=== PATIENT | female | born 1960 | race Caucasian/White ===

== ENCOUNTER 2021-03-17 17:21 | Emergency (ER) | payer OTHER, SELFPAY ==
[2021-03-17 18:36] VITALS: BP 150/81; PULSE 67; RESP 18; TEMP 36.9; O2SAT 98; BMI 26.5
[2021-03-17 19:05] LABS: MANUAL DIFF FLAG NO
[2021-03-17 19:06] LABS: Basophils Absolute Auto 0.1 X10*3/uL (0.0-0.2); Eosinophils Absolute Auto 0.2 X10*3/uL (0.0-0.4); Eosinophils Percent Auto 2.9 % (0-4); Hemoglobin 13.5 g/dl (12.0-16.0); Imm Gran Abs Auto 0.02 X10*3/uL (0.00-0.03); Imm Gran Pct Auto 0.3 % (0.0-0.4); Lymphocytes Absolute Auto 2.1 X10*3/uL (1.2-4.9); Lymphocytes Percent Auto 34.2 % (20-40); Mean Corpuscular HGB Conc 34.6 g/dl (31.0-35.0); Mean Corpuscular Volume 86.7 fL (80-98); Mean Platelet Volume 10.9 fL (9.4-12.3); Monocytes Absolute Auto 0.3 X10*3/uL (0.1-1.2); Monocytes Percent Auto 5.4 % (2-11); Neutrophils Absolute Auto 3.4 X10*3/uL (2.0-8.3); Neutrophils Percent Auto 56.2 % (45-73); Platelet Count 284 X10*3/uL (160-400); Red Cell Distribution Width 11.8 % (11.0-16.0); White Blood Count 6.1 X10*3/uL (4.8-10.8)
[2021-03-17 19:12] LABS: Glucose, Whole Blood 265 mg/dL (60-115)
[2021-03-17 19:31] LABS: Alanine Aminotransferase 13 U/L (0-31); Albumin Level 4.4 g/dL (3.5-5.0); Alkaline Phosphatase 100 U/L (39-117); Anion Gap 14 (12-20); Aspartate Amino Transferase 16 U/L (5-31); Bilirubin Total 0.4 mg/dL (0.0-1.0); Blood Urea Nitrogen 18 mg/dL (9-16); Calcium 9.4 mg/dL (8.4-10.2); Carbon Dioxide 27 mmol/L (22-29); Chloride 102 mmol/L (96-108); Estimated Glomerular Filt Rate > 60; Glucose Random 275 mg/dL (60-115); Potassium 3.7 mmol/L (3.3-5.1); Sodium 139 mmol/L (135-145); Total Protein 7.2 g/dL (6.5-8.0)
--- NOTE | 2021-03-17 21:29 | ED_ITS ---
HPI - General Adult General Chief complaint: General Medical Stated complaint: HIGH BP, BLURRED VISION Time Seen by Provider: 03/17/21 21:29 Source: patient Mode of arrival: ambulatory Limitations: no limitations History of Present Illness HPI narrative: This is a 60-year-old female came in for evaluation of high blood sugar. 60-year-old female has a history of type 2 diabetes, patient was on metformin previously for diabetes, patient was able to adjust her diet and metformin was discontinued, patient now eats lots of carb diet, feels body numbness, blurry vision, polyuria, polydipsia which are signs of elevated blood sugar for her. Related Data Previous Rx's Medication Instructions Recorded metformin 500 mg PO BID #60 tab 03/17/21 Allergies Allergy/AdvReac Type Severity Reaction Status Date / Time No Known Allergies Allergy Verified 03/17/21 18:36 Review of Systems Review of Systems: All other systems are reviewed and are negative Constitutional: Reports as per HPI and Reports no additional constitutional comp laints Eyes: Reports as per HPI and Reports no additional eye complaints Reports system reviewed and no additional complaints, except as documented Cardiovascular: Reports as per HPI and Reports no additional cardiovascular complaints Respiratory: Reports as per HPI and Reports no additional respiratory complaints Gastrointestinal: Reports as per HPI and Reports no additional gastrointestinal complaints Genitourinary: Reports no additional female genitourinary complaints Musculoskeletal: Reports no additional musculoskeletal complaints Skin/Breast: Reports system reviewed and no additional complaints, except as docu Psychiatric: Reports no additional psychiatric complaints Endocrine: Reports no additional endocrine complaints Hematologic/Lymphatic: Reports no additional hematologic/lymphatic complaints Allergic/Immunologic: Reports no additional allergic/immunologic complaints Reports system reviewed and no additional complaints, except as documented and Reports Abnormal speech present [facility] Social History Social History Advance Directives: No Advance Directives Information Provided: Yes Patient : No Physical Exam Vital Signs: Vital Signs: Last Vital Signs Temp 98.5 F 03/17/21 18:36 Pulse 67 03/17/21 18:36 Resp 18 03/17/21 18:36 BP 150/81 H 03/17/21 18:36 Pulse Ox 98 03/17/21 18:36 Body Mass Index 26.5 Vital signs have been reviewed as appeared to be correct. Blood pressure normal. Heart rate normal. Respiration rate normal. Temperature normal. Oxygen saturation normal. Appearance: Alert. Oriented X3. No acute distress. Head: Normal external exam. Normocephalic. Atraumatic. No Desai signs noted. No raccoon eyes noted Eyes: PERRLA. EOMI. Conjunctiva and sclera normal. Eyelids normal. ENT: TM's Normal. Pharynx normal. Uvula midline. Moist mucous membranes. No trismus noted. No drooling noted. No muffled voice noted. Neck: Normal inspection. Neck supple. FROM. No adenopathy. Thyroid Normal. No meningeal signs. No neck mass noted. CVS: Normal heart rate and rhythm. Heart sound normal. No murmurs noted. Pulses normal throughout. Respiratory: No respiratory distress. Painless inspiration. Breath sounds normal. No wheezes/rales/rhonchi noted. Chest nontender. No accessory muscle usage noted or decreased air movement noted. Abdomen: Soft and nontender. Bowel sounds normal in all 4 quadrants. No distention noted. No organomegaly noted. No visible injury noted. Back: No CVA tenderness. Full range of motion noted. Skin: Skin warm and dry. Normal skin color. Normal skin turgor. No rashes/lesions/lacerations noted. Extremities: No lower extremity edema. Extremities exhibit normal range of motion. Extremities nontender. Neuro: Oriented X 3. No motor deficit. No sensory deficit. Reflexes normal. Course Course Course Narrative: Assessment and plan. 60-year-old female with recurrent type 2 diabetes, patient used to be on metformin twice a day was able to control her diabetes with just tight and the medication was discontinued, patient admitted to eating unhealthy males with high carbon and been having symptoms for type 2 diabetes, will start patient on Glucophage and urge until sees her primary doctor. Medical Decision Making Lab Data Lab results reviewed: Yes I reviewed the patient's lab results. Result diagrams: 03/17/21 19:00 03/17/21 19:00 Labs: Lab Results 03/17/21 03/17/21 03/17/21 Range/Units 18:48 19:00 19:00 WBC 6.1 (4.8-10.8) X10*3/uL RBC 4.50 (4.20-5.50) X10*6/uL Hgb 13.5 (12.0-16.0) g/dl Hct 39.0 (37-47) % MCV 86.7 (80-98) fL MCH 30.0 (27.0-33.0) pg MCHC 34.6 (31.0-35.0) g/dl RDW 11.8 (11.0-16.0) % Plt Count 284 (160-400) X10*3/uL MPV 10.9 (9.4-12.3) fL Immature Gran % (Auto) 0.3 (0.0-0.4) % Neut % (Auto) 56.2 (45-73) % Lymph % (Auto) 34.2 (20-40) % Turner % (Auto) 5.4 (2-11) % Eos % (Auto) 2.9 (0-4) % Baso % (Auto) 1.0 (0-2) % Lymph # (Auto) 2.1 (1.2-4.9) X10*3/uL Turner # (Auto) 0.3 (0.1-1.2) X10*3/uL Eos # (Auto) 0.2 (0.0-0.4) X10*3/uL Baso # (Auto) 0.1 (0.0-0.2) X10*3/uL Abs Immat Gran (auto) 0.02 (0.00-0.03) X10*3/uL Absolute Neuts (auto) 3.4 (2.0-8.3) X10*3/uL Absolute Nucleated RBC 0.000 (0.0-0.012) X10*3/uL Nucleated RBC % (auto) 0.0 (0.0-0.2) /100WBC Sodium 139 (135-145) mmol/L Potassium 3.7 (3.3-5.1) mmol/L Chloride 102 (96-108) mmol/L Carbon Dioxide 27 (22-29) mmol/L Anion Gap 14 (12-20) BUN 18 H (9-16) mg/dL Creatinine 0.83 (0.5-1.4) mg/dL Estim Creat Clear Calc 65.0 Estimated GFR > 60 POC Glucose 265 H (60-115) mg/dL Random Glucose 275 H (60-115) mg/dL Calcium 9.4 (8.4-10.2) mg/dL Total Bilirubin 0.4 (0.0-1.0) mg/dL AST 16 (5-31) U/L ALT 13 (0-31) U/L Alkaline Phosphatase 100 (39-117) U/L Total Protein 7.2 (6.5-8.0) g/dL Albumin 4.4 (3.5-5.0) g/dL Discharge Plan Discharge Clinical Impression: Diabetes Qualifiers: Diabetes mellitus type: type 2 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
[2021-03-17 21:42] LABS: Glucose, Whole Blood 218 mg/dL (60-115)
[2021-03-17] MEDS: metFORMIN HCl 500 MG TABLET PO (22:04)
[2021-03-17 22:09] VITALS: BP 146/78; PULSE 60; RESP 17; TEMP 37.3; O2SAT 98
== END 2021-03-17 22:49 | disposition home or self-care (01) ==
PROVIDERS: Emergency Provider Emergency Medicine
DX: E11.9 Type 2 diabetes mellitus without complications (principal)
CPT/HCPCS: 36415; 80053; 82947; 85025; 99283

== ENCOUNTER 2021-04-08 11:07 | Outpatient (REF) | payer OTHER, SELFPAY ==
[2021-04-08 14:00] LABS: Basophils Percent Auto 0.2 % (0-2); Eosinophils Percent Auto 0.7 % (0-4); Hematocrit 36.5 % (37-47); Lymphocytes Absolute Auto 1.7 X10*3/uL (1.2-4.9); Lymphocytes Percent Auto 40.8 % (20-40); MANUAL DIFF FLAG SCAN; Mean Corpuscular HGB Conc 35.6 g/dl (31.0-35.0); Mean Corpuscular Hemoglobin 29.6 pg (27.0-33.0); Mean Corpuscular Volume 83.1 fL (80-98); Mean Platelet Volume 12.5 fL (9.4-12.3); Monocytes Absolute Auto 0.5 X10*3/uL (0.1-1.2); Neutrophils Percent Auto 47.3 % (45-73); Platelet Count 179 X10*3/uL (160-400); Red Blood Count 4.39 X10*6/uL (4.20-5.50); Red Cell Distribution Width 11.5 % (11.0-16.0); SCAN SMEAR FLAG 1; White Blood Count 4.3 X10*3/uL (4.8-10.8)
[2021-04-08 14:34] LABS: SLIDE REVIEW VERIFIED
[2021-04-08 14:35] LABS: Estimated Average Glucose 295 mg/dL; Hemoglobin A1c % 11.9 %
[2021-04-08 14:38] LABS: Alanine Aminotransferase 262 U/L (0-31); Albumin Level 4.2 g/dL (3.5-5.0); Alkaline Phosphatase 272 U/L (39-117); Anion Gap 16 (12-20); Aspartate Amino Transferase 86 U/L (5-31); Bilirubin Total 1.1 mg/dL (0.0-1.0); Blood Urea Nitrogen 20 mg/dL (9-16); Calcium 9.4 mg/dL (8.4-10.2); Carbon Dioxide 27 mmol/L (22-29); Chloride 93 mmol/L (96-108); Cholesterol 197 mg/dL; Estimated Glomerular Filt Rate > 60; Glucose Fasting 273 mg/dL (60-99); HDL Cholesterol 16 mg/dL; LDL Cholesterol Calculated 102 mg/dl; Potassium 3.4 mmol/L (3.3-5.1); Sodium 133 mmol/L (135-145); Triglycerides 395 mg/dL
[2021-04-08 14:51] LABS: Creatinine Urine 181.19 mg/dL; Microalbum/Creatinine Ratio Ur 23.1 ug/mg cr
[2021-04-08 15:02] LABS: TSH reflex Free T4 5.44 uIU/mL (0.32-4.0); Vitamin D 25-OH Total 46.6 ng/mL (>30)
[2021-04-08 15:23] LABS: Folate > 20.0 ng/mL (> or = 4.0); Vitamin B12 1880 pg/mL (200-900)
[2021-04-08 15:41] LABS: Free T4 (Free Thyroxine) 0.93 ng/dL (0.71-1.85)
== END 2021-04-08 11:08 | disposition home or self-care (01) ==
LOC: HO.HMGCLDS 11:07
PROVIDERS: PCP Internal Medicine; Visit Provider Internal Medicine
DX: E11.65 Type 2 diabetes mellitus with hyperglycemia (principal); R41.0 Disorientation, unspecified
CPT/HCPCS: 36415; 80053; 80061; 82043; 82306; 82607; 82746; 83036; 84439; 84443; 85025

== ENCOUNTER 2021-04-15 23:34 | Emergency (ER) | payer OTHER, SELFPAY ==
--- NOTE | ~2021-04-15 | CT_ITS ---
EXAMINATION: CT ABDOMEN AND PELVIS WITH CONTRAST CLINICAL INFORMATION: Abdominal pain COMPARISON: None TECHNIQUE: Multidetector volumetric images were obtained from the superior aspect of the liver through the pubic symphysis following administration 85 mL of Omnipaque 350 intravenous contrast. Sagittal and coronal reformatted images were obtained on the technologist's workstation. Oral contrast: No This CT examination was performed using dose optimization techniques as appropriate, variously including the following: *Automated exposure control *Adjustment of mA and/or kV according to patient size (this includes techniques or standardized protocols for targeted exams where dose is matched to indication/reason for exam; i.e. extremities or head) *Use of iterative reconstruction technique DLP: 555 mGy-cm FINDINGS: LUNG BASES: The visualized lung bases are unremarkable. Coronary artery calcifications are present. LIVER, GALLBLADDER, AND BILIARY TREE: The liver is normal in size, shape, and attenuation. No focal hepatic lesion or biliary ductal dilatation is present. The gallbladder is unremarkable with no evidence of radiopaque gallstones, gallbladder wall thickening, or obvious pericholecystic inflammatory changes. PANCREAS: Unremarkable. SPLEEN: Unremarkable. ADRENAL GLANDS: Unremarkable. KIDNEYS AND URETERS: The kidneys are normal in size, shape, and attenuation. No hydronephrosis, hydroureter, or calculi seen. Few small renal hypodensities bilaterally favor cysts. No perinephric stranding. BLADDER: Unremarkable. GASTROINTESTINAL TRACT: There is colonic diverticulosis without convincing diverticulitis. Assessment for wall thickening in some segments of the colon is limited due to luminal collapse, though no significant pericolonic stranding is seen to strongly suggest a colitis. No evidence of bowel obstruction. The appendix is unremarkable. No free fluid or free air is seen. ABDOMINAL WALL: No significant hernia is appreciated. LYMPH NODES: Normal. VASCULAR: Scattered atherosclerotic calcifications noted. PELVIC VISCERA: Unremarkable. OSSEOUS STRUCTURES: Degenerative changes are noted in the spine. CT/CT abdomen pelvis w con IMPRESSION: No acute findings identified in the abdomen/pelvis. Colonic diverticulosis.
[2021-04-15 23:54] VITALS: BP 128/76; PULSE 86; RESP 20; TEMP 36.8; O2SAT 97; BMI 21.0
--- NOTE | 2021-04-16 00:23 | ECG_ITS ---
Test Reason : MEDICAL CLEARENCE Blood Pressure : / mmHG Vent. Rate : 083 BPM Atrial Rate : 083 BPM P-R Int : 160 ms QRS Dur : 090 ms QT Int : 370 ms P-R-T Axes : 046 035 023 degrees QTc Int : 434 ms Normal sinus rhythm Normal ECG When compared with ECG of 02-OCT-2008 14:59, No significant change was found Referred By: Generic ED Physician Electronically Signed By:MIAH CAMPA
[2021-04-16 00:28] LABS: MANUAL DIFF FLAG NO
[2021-04-16 00:33] LABS: Basophils Percent Auto 0.5 % (0-2); Eosinophils Absolute Auto 0.1 X10*3/uL (0.0-0.4); Eosinophils Percent Auto 1.7 % (0-4); Hematocrit 35.4 % (37-47); Hemoglobin 12.5 g/dl (12.0-16.0); Imm Gran Abs Auto 0.09 X10*3/uL (0.00-0.03); Imm Gran Pct Auto 1.1 % (0.0-0.4); Lymphocytes Absolute Auto 2.9 X10*3/uL (1.2-4.9); Lymphocytes Percent Auto 35.4 % (20-40); Mean Corpuscular HGB Conc 35.3 g/dl (31.0-35.0); Mean Corpuscular Hemoglobin 30.4 pg (27.0-33.0); Mean Corpuscular Volume 86.1 fL (80-98); Mean Platelet Volume 9.9 fL (9.4-12.3); Monocytes Absolute Auto 0.8 X10*3/uL (0.1-1.2); Monocytes Percent Auto 10.2 % (2-11); Neutrophils Absolute Auto 4.2 X10*3/uL (2.0-8.3); Neutrophils Percent Auto 51.1 % (45-73); Platelet Count 579 X10*3/uL (160-400); Red Blood Count 4.11 X10*6/uL (4.20-5.50); Red Cell Distribution Width 12.1 % (11.0-16.0); White Blood Count 8.1 X10*3/uL (4.8-10.8)
[2021-04-16 00:43] LABS: COVID-19 Test Negative (Negative)
[2021-04-16 00:44] LABS: Glucose, Whole Blood 200 mg/dL (60-115)
[2021-04-16 00:57] LABS: Alanine Aminotransferase 53 U/L (0-31); Albumin Level 4.6 g/dL (3.5-5.0); Alkaline Phosphatase 136 U/L (39-117); Anion Gap 18 (12-20); Aspartate Amino Transferase 22 U/L (5-31); Bilirubin Total 1.1 mg/dL (0.0-1.0); Blood Urea Nitrogen 20 mg/dL (9-16); Carbon Dioxide 26 mmol/L (22-29); Chloride 97 mmol/L (96-108); Creatinine Clr Calc Pharmacy 46.6; Estimated Glomerular Filt Rate 57; Glucose Random 225 mg/dL (60-115); Lipase 96 U/L (8-78); Potassium 4.2 mmol/L (3.3-5.1); Sodium 137 mmol/L (135-145); Total Protein 7.5 g/dL (6.5-8.0)
[2021-04-16 00:58] LABS: Troponin-I High Sensitivity < 3.5 ng/L (<3.5-17.0)
--- NOTE | 2021-04-16 02:13 | ED_ITS ---
HPI - General Adult General Chief complaint: General Medical Stated complaint: diabetic, cant eat, nausea Time Seen by Provider: 04/16/21 00:35 Source: patient Mode of arrival: ambulatory History of Present Illness HPI narrative: 60-year-old female with known diabetes comes in with complaints of ?a sweet taste no matter what she eats? but otherwise denies any abdominal pain/nausea/vomiting, denies any shortness of breath/chest pain/palpitations and denies any urinary symptoms. Related Data Previous Rx's Medication Instructions Recorded gabapentin 300 mg capsule 300 mg PO BID 30 Days #60 cap 03/25/21 metformin 1,000 mg tablet 1,000 mg PO BID #30 tab 03/25/21 metformin 1,000 mg tablet 1,000 mg PO BID #60 tab 04/07/21 blood sugar diagnostic (FreeStyle #100 ea 04/10/21 Lite Strips) blood-glucose meter (FreeStyle #1 ea 04/10/21 Lite Meter) lancets 28 gauge (FreeStyle #100 ea 04/10/21 Lancets) Allergies Allergy/AdvReac Type Severity Reaction Status Date / Time No Known Allergies Allergy Verified 04/11/21 14:11 Review of Systems Review of Systems: Pertinent positives and negatives as stated in HPI and 10 point review of systems is otherwise negative. [facility] Past Medical History Source: nursing notes reviewed Medical History Confusion Type 2 diabetes mellitus with hyperglycemia, without long-term current use of insulin Family History Family History Mother Dementia Social History Social History Housing: Other Housing Other:: son and daughter in law Patient Tobacco Use Status: Former Tobacco user Years Smoked: 10 yrs e-Cigarette/Vaping Use: Never Used Second Hand Smoke Exposure: No Advance Directives: No Advance Directives Information Provided: Yes Patient : No service: No Current occupational status: employed Physical Exam Vital Signs: Vital Signs: Last Vital Signs Temp 98.2 F 04/15/21 23:54 Pulse 86 04/15/21 23:54 Resp 20 04/15/21 23:54 BP 128/76 04/15/21 23:54 Pulse Ox 97 04/15/21 23:54 Body Mass Index 21.0 VITAL SIGNS: Reviewed. GENERAL: Well developed, well nourished, in no acute distress. HEAD: Normocephalic/atraumatic EYES: PERRLA, EOMI LUNGS: Normal breath sounds. No adventitious sounds or accessory muscle use. SpO2<97> CARDIOVASCULAR: Regular rate and rhythm without noted murmurs, no JVD or lower e xtremity edema. ABDOMEN: Soft, non-tender, non-distended with bowel sounds. SKIN: Inspection of the skin reveals no rashes NEUROLOGIC: Alert and oriented x 4. Strength and sensation to light touch were grossly intact x 4. Course Course Course Narrative: 60-year-old female with history and clinical presentation suggestive of possible hyperglycemia, UTI, gallbladder pathology. Review of all investigations without acute findings although noted liver enzymes as well as pancreatic elevation without CT scan or clinical exam to further support evidence of cholecystitis/choledocholithiasis/biliary pancreatitis. However, patient was encouraged to follow-up with her primary care provider as it was explained that there are some medications that can lead to these results. Medical Decision Making Lab Data Result diagrams: 04/16/21 00:19 04/16/21 00:19 Labs: Lab Results 04/16/21 04/16/21 04/16/21 Range/Units 00:19 00:19 00:19 WBC 8.1 (4.8-10.8) X10*3/uL RBC 4.11 L (4.20-5.50) X10*6/uL Hgb 12.5 (12.0-16.0) g/dl Hct 35.4 L (37-47) % MCV 86.1 (80-98) fL MCH 30.4 (27.0-33.0) pg MCHC 35.3 H (31.0-35.0) g/dl RDW 12.1 (11.0-16.0) % Plt Count 579 H D (160-400) X10*3/uL MPV 9.9 (9.4-12.3) fL Immature Gran % (Auto) 1.1 H (0.0-0.4) % Neut % (Auto) 51.1 (45-73) % Lymph % (Auto) 35.4 (20-40) % Lares % (Auto) 10.2 (2-11) % Eos % (Auto) 1.7 (0-4) % Baso % (Auto) 0.5 (0-2) % Lymph # (Auto) 2.9 (1.2-4.9) X10*3/uL Lares # (Auto) 0.8 (0.1-1.2) X10*3/uL Eos # (Auto) 0.1 (0.0-0.4) X10*3/uL Baso # (Auto) 0.0 (0.0-0.2) X10*3/uL Abs Immat Gran (auto) 0.09 H (0.00-0.03) X10*3/uL Absolute Neuts (auto) 4.2 (2.0-8.3) X10*3/uL Absolute Nucleated RBC 0.000 (0.0-0.012) X10*3/uL Nucleated RBC % (auto) 0.0 (0.0-0.2) /100WBC Sodium 137 (135-145) mmol/L Potassium 4.2 D (3.3-5.1) mmol/L Chloride 97 (96-108) mmol/L Carbon Dioxide 26 (22-29) mmol/L Anion Gap 18 (12-20) BUN 20 H (9-16) mg/dL Creatinine 0.99 (0.5-1.4) mg/dL Estim Creat Clear Calc 46.6 Estimated GFR 57 POC Glucose (60-115) mg/dL Random Glucose 225 H (60-115) mg/dL Calcium 10.0 D (8.4-10.2) mg/dL Total Bilirubin 1.1 H (0.0-1.0) mg/dL AST 22 D (5-31) U/L ALT 53 H (0-31) U/L Alkaline Phosphatase 136 H D (39-117) U/L Troponin I High Sens < 3.5 (<3.5-17.0) ng/L Total Protein 7.5 (6.5-8.0) g/dL Albumin 4.6 (3.5-5.0) g/dL Lipase 96 H (8-78) U/L Acetone, Qual Negative (Negative) COVID-19 (ADIA) (Negative) COVID-19 Clin Com 04/16/21 04/16/21 Range/Units 00:19 00:40 WBC (4.8-10.8) X10*3/uL RBC (4.20-5.50) X10*6/uL Hgb (12.0-16.0) g/dl Hct (37-47) % MCV (80-98) fL MCH (27.0-33.0) pg MCHC (31.0-35.0) g/dl RDW (11.0-16.0) % Plt Count (160-400) X10*3/uL MPV (9.4-12.3) fL Immature Gran % (Auto) (0.0-0.4) % Neut % (Auto) (45-73) % Lymph % (Auto) (20-40) % Lares % (Auto) (2-11) % Eos % (Auto) (0-4) % Baso % (Auto) (0-2) % Lymph # (Auto) (1.2-4.9) X10*3/uL Lares # (Auto) (0.1-1.2) X10*3/uL Eos # (Auto) (0.0-0.4) X10*3/uL Baso # (Auto) (0.0-0.2) X10*3/uL Abs Immat Gran (auto) (0.00-0.03) X10*3/uL Absolute Neuts (auto) (2.0-8.3) X10*3/uL Absolute Nucleated RBC (0.0-0.012) X10*3/uL Nucleated RBC % (auto) (0.0-0.2) /100WBC Sodium (135-145) mmol/L Potassium (3.3-5.1) mmol/L Chloride (96-108) mmol/L Carbon Dioxide (22-29) mmol/L Anion Gap (12-20) BUN (9-16) mg/dL Creatinine (0.5-1.4) mg/dL Estim Creat Clear Calc Estimated GFR POC Glucose 200 H (60-115) mg/dL Random Glucose (60-115) mg/dL Calcium (8.4-10.2) mg/dL Total Bilirubin (0.0-1.0) mg/dL AST (5-31) U/L ALT (0-31) U/L Alkaline Phosphatase (39-117) U/L Troponin I High Sens (<3.5-17.0) ng/L Total Protein (6.5-8.0) g/dL Albumin (3.5-5.0) g/dL Lipase (8-78) U/L Acetone, Qual (Negative) COVID-19 (ADIA) Negative (Negative) COVID-19 Clin Com See Note ECG Data Attestation: I personally reviewed and interpreted this ECG as follows: Prior ECG tracings: available for review (10/02/2008 no acute changes on comparison) Interpretation: Normal sinus rhythm, HR-83, no STEMI, HI/QRS/QTC are within normal limits. Discharge Plan Discharge Clinical Impression: Nausea, Diabetes, Elevated liver enzymes Patient Disposition: Home, Self-Care Instructions: Diabetes and Nutrition (ED) Additional Instructions: 1. Resume all home medications as prescribed. You have noted elevation of your liver enzymes and this should be evaluated further by your primary care provider. 2. Follow-up with your primary care provider in the next 1-2 days for re- evaluation further outpatient management. Return to the ER for acute worsening of your symptoms. Prescriptions: No Action (DME) FreeStyle Lite Strips Strip See Rx Instructions .Route Qty: 100 RF: 5 (DME) blood-glucose meter [FreeStyle Lite Meter] Kit See Rx Instructions .Route Qty: 1 RF: 0 (DME) lancets [FreeStyle Lancets] 28 gauge misc See Rx Instructions .Route Qty: 100 RF: 5 metformin 1,000 mg tablet 1,000 mg PO BID Qty: 30 RF: 0 gabapentin 300 mg capsule 300 mg PO BID 30 Days Qty: 60 RF: 0 metformin 1,000 mg tablet 1,000 mg PO BID Qty: 60 RF: 1 Referrals: Physician,Unknown [Primary Care Provider] - 2 days
[2021-04-16 02:21] LABS: Acetone, serum QL Negative (Negative)
[2021-04-16] MEDS: 0.9 % Sodium Chloride 1,000 ML 999 ML IV (02:26)
[2021-04-16] MEDS: iohexoL 350 MG/ML 100 ML INFUS..BTL 85 ML IV (02:53)
== END 2021-04-16 04:15 | disposition home or self-care (01) ==
PROVIDERS: Emergency Provider Student in an Organized Health Care Education/Training Program
DX: R11.0 Nausea (principal); R79.89 Other specified abnormal findings of blood chemistry; E11.9 Type 2 diabetes mellitus without complications; Z20.822 Contact with and (suspected) exposure to COVID-19; Z87.891 Personal history of nicotine dependence; Z79.899 Other long term (current) drug therapy
CPT/HCPCS: 36415; 74177; 80053; 82009; 82947; 83690; 84484; 85025; 87635; 93005; 96360; 99283; 99284; Q9967

== ENCOUNTER 2023-03-03 18:53 | Emergency (ER) | payer OTHER, SELFPAY ==
--- NOTE | ~2023-03-03 | CT_ITS ---
EXAMINATION: CT HEAD WITHOUT CONTRAST CLINICAL INFORMATION: Fall with head strike and tenderness. COMPARISON: None available. TECHNIQUE: Contiguous axial imaging was performed from the skull base to vertex without intravenous administration of contrast. This CT examination was performed using dose optimization techniques as appropriate, variously including the following: *Automated exposure control *Adjustment of mA and/or kV according to patient size (this includes techniques or standardized protocols for targeted exams where dose is matched to indication/reason for exam; i.e. extremities or head) *Use of iterative reconstruction technique DLP: 569 mGy-cm FINDINGS: There is no acute intra-axial, extra-axial bleed, masses or midline shift. There is no acute infarction evolution. There is no edema. The lopez to white matter difference is maintained normal. The lateral ventricles are symmetrical in size and configuration without enlargement. Bone windows reveal no calvarial abnormality. There is mild mucoperiosteal thickening left maxillary sinus. Rest of the paranasal sinuses and mastoid air cells are well-aerated. CT/CT head/brain wo IV con IMPRESSION: No acute intracranial process seen.
[2023-03-03 19:21] VITALS: BP 120/71; PULSE 83; RESP 18; TEMP 36.7; O2SAT 99; BMI 48.8
--- NOTE | 2023-03-03 19:21 | ED.GENADULT ---
HPI - General Adult General Chief complaint: Neuro Symptoms/Deficit Stated complaint: double vision right eye since 03/02 Related Data Previous Rx's Medication Instructions Recorded blood sugar diagnostic (FreeStyle #100 ea 04/10/21 Lite Strips) blood-glucose meter (FreeStyle #1 ea 04/10/21 Lite Meter kit) Allergies Allergy/AdvReac Type Severity Reaction Status Date / Time No Known Allergies Allergy Verified 02/25/23 15:21 [facility] Past Medical History Medical History Confusion Type 2 diabetes mellitus with hyperglycemia, without long-term current use of insulin Surgical History No pertinent past surgical history Family History Family History Mother Dementia Social History Social History Housing: Other Housing Other:: son and daughter in law Patient Tobacco Use Status: Former Tobacco user Years Smoked: 10 yrs e-Cigarette/Vaping Use: Never Used Second Hand Smoke Exposure: No Advance Directives: No Advance Directives Information Provided: No service: No Current occupational status: employed Physical Exam ED Vital Signs: BMI result Body Mass Index 48.8 Course Course Course Narrative: This is a rapid medical exam: Additional HPI, ROS, PE not included below will be deferred to primary provider. Patient is a 62-year-old female with history of confusion, T2DM and diabetic neuropathy presenting to the emergency department with double vision in right eye since yesterday but is unsure if it was the day before. Denies any headache, eye pain, or other pain. Denies any extremity weakness. Patient stating in triage that she has not previously been evaluated for these symptoms, however review of EMR reveals that patient was evaluated at the walk-in clinic for same complaint on 02/25/23. Patient was advised to be further evaluated in the ED or by an music coordinator at that time but patient does not remember if she did or not. She denies any memory of this walk-in visit and reports problems with memory that have been progressively worsening. States has continued to work despite symptoms. Drove herself to the ED today. Plan: basic labs, CT head Medical Decision Making Lab Data 03/03/23 19:58 03/03/23 19:58 Labs: Lab Results 03/03/23 03/03/23 Range/Units 19:58 19:58 WBC 8.0 (4.8-10.8) X10*3/uL RBC 4.39 (4.20-5.50) X10*6/uL Hgb 13.1 (12.0-16.0) g/dl Hct 37.2 (37.0-47.0) % MCV 84.7 (80.0-98.0) fL MCH 29.8 (27.0-33.0) pg MCHC 35.2 H (31.0-35.0) g/dl RDW 11.7 (11.0-16.0) % Plt Count 353 (160-400) X10*3/uL MPV 10.3 (9.4-12.3) fL Immature Gran % (Auto) 0.3 (0.0-0.4) % Neut % (Auto) 69.9 (45-73) % Lymph % (Auto) 22.4 (20-40) % Callahan % (Auto) 4.6 (2-11) % Eos % (Auto) 2.0 (0-4) % Baso % (Auto) 0.8 (0-2) % Lymph # (Auto) 1.8 (1.2-4.9) X10*3/uL Callahan # (Auto) 0.4 (0.1-1.2) X10*3/uL Eos # (Auto) 0.2 (0.0-0.4) X10*3/uL Baso # (Auto) 0.1 (0.0-0.2) X10*3/uL Abs Immat Gran (auto) 0.02 (0.00-0.03) X10*3/uL Absolute Neuts (auto) 5.6 (2.0-8.3) x10*3/uL Absolute Nucleated RBC 0.000 (0.0-0.012) X10*3/uL Nucleated RBC % (auto) 0.0 (0.0-0.2) /100WBC Sodium 135 (135-145) mmol/L Potassium 3.6 (3.3-5.1) mmol/L Chloride 97 (96-108) mmol/L Carbon Dioxide 28 (22-29) mmol/L Anion Gap 14 (12-20) BUN 19 H (9-16) mg/dL Creatinine 0.81 (0.5-1.4) mg/dL Estim Creat Clear Calc 90.2 Estimated GFR > 60 Random Glucose 219 H (60-115) mg/dL Calcium 10.4 H (8.4-10.2) mg/dL Discharge Plan Discharge Clinical Impression: Diplopia Patient Disposition: Elopement Prescriptions: No Action (DME) FreeStyle Lite Strips Strip See Rx Instructions .Route Qty: 100 5RF Rx Instructions: check fasting blood sugar twice a day (DME) blood-glucose meter [FreeStyle Lite Meter] Kit See Rx Instructions .Route Qty: 1 0RF Rx Instructions: Check fasting blood sugar twice a day and keep a record of the readings Interventions: ED Discharge Assessment Last Done: 03/04/23 00:08 Discharge Date/Time: 03/04/23 00:10
--- NOTE | 2023-03-03 19:27 | PC.NURSE ---
patient came into the Er complaining of having double vision in the right eye for a couple of days no pain noted
--- OUTSIDE RECORDS SUMMARY | 2023-03-03 20:01 | XMS_ITS | Continuity of Care Document ---
Author Name Unknown Organization [facility] ter Address [address] [place] [id number]- Care Team Providers Care Loan Officer Assistant Name Role Phone Mathew LINDSEY, Isa Rojas Primary Care Physician Encounter [facility] [place] Date(s): 04/11/21 - 04/11/[address] [id number]- Encounter Diagnosis Altered mental status(Final) - 04/11/21 Discharge Disposition: A-D/C Walkout Attending Physician: Jose Kelley MD Admitting Physician: Jose Kelley MD Referring Physician: Not on Staff, Referring MD Allergies, Adverse Reactions, Alerts Substance Reaction Severity Status NKA Active Immunizations Given and Recorded Vaccine Date Status Refusal Reason pneumococcal 23-valent vaccine 07/03/18 Given influenza virus vaccine, inactivated 07/03/18 Give n Problem List Condition Effective Dates Status Health Status Inform ant Anxiety(Confirmed) Active Vitamin D insufficiency(Confirmed) Active Dyslipidemia(Confirmed) Active Subclinical hypothyroidism(Confirmed) Active T2DM (type 2 diabetes mellitus)(Confirmed) Active Results Radiology Reports * Exam Date Time Procedure Performing Provider Status 04/11/21 7:00 PM Chest Portable Dayan Alexander; Aut h (Verified) Notes: (Chest Portable) Reason For Exam: Shortness of Breath RESULT: Chest Portable Chest Portable Reason: Shortness of Breath; Clinical Question(s): CHF COMPARISON: None. FINDINGS: LINES AND TUBES: None. LUNGS AND PLEURA: Clear lungs. Normal pulmonary vascularity. No pleural effusion. No pneumothorax. HEART, MEDIASTINUM AND NEYMAR: Heart is normal in size. Normal upper mediastinal and hilar contour. BONES AND SOFT TISSUES: No acute abnormality. IMPRESSION: No acute abnormality. WSN: [id number] Ordering Physician: Fausto Schaffer Dictated By: Dulce Long MD Dictated Date/Time: 04/11/21 7:08 pm Reviewed By: Dulce Long MD Signed By: Dulce Long MD Signed Date/Time: 04/11/21 7:08 pm Transcribed By: EDITH Transcribed Date/Time: 04/11/21 7:08 pm Vital Signs Most recent to oldest [Reference Range]: 1 Oxygen Saturation [94-100 %] 99 % (04/11/21 4:01 PM) Pulse Rate [55-90 bpm] 85 bpm (04/11/21 4:01 PM) Blood Pressure [90-138/55-84 mm Hg] 133/ 76mm Hg (04/11/21 4:01 PM) Respiratory Rate [16-30 br/min] 18 br/mi n (04/11/21 4:01 PM) Temperature [96.8-100.4 DegF] 97.9 DegF (04/11/21 4:01 PM) Mode of Delivery (Oxygen) Room air (04/11/21 4:01 PM) Blood pressure sites Arm, left (04/11/21 4:01 PM) Temperature Route Axillary (04/11/21 4:01 PM) Social History Social History Type Response Smoking Status Former smoker; Type: Cigarettes; Tobacco use times per day: 1/2 PPD; Started at age: 16; Stopped at age: 32; entered on: 05/02/18 Sex
--- NOTE | 2023-03-03 20:03 | MHC.EDTECH ---
PATIENT BLOOD DRAWN AND SENT TO LAB ,VISUAL ACUITY CHECK DONE .
[2023-03-03 20:04] LABS: MANUAL DIFF FLAG NO
[2023-03-03 20:05] LABS: Basophils Absolute Auto 0.1 X10*3/uL (0.0-0.2); Basophils Percent Auto 0.8 % (0-2); Eosinophils Absolute Auto 0.2 X10*3/uL (0.0-0.4); Hematocrit 37.2 % (37.0-47.0); Hemoglobin 13.1 g/dl (12.0-16.0); Imm Gran Abs Auto 0.02 X10*3/uL (0.00-0.03); Imm Gran Pct Auto 0.3 % (0.0-0.4); Lymphocytes Absolute Auto 1.8 X10*3/uL (1.2-4.9); Lymphocytes Percent Auto 22.4 % (20-40); Mean Corpuscular HGB Conc 35.2 g/dl (31.0-35.0); Mean Corpuscular Hemoglobin 29.8 pg (27.0-33.0); Mean Corpuscular Volume 84.7 fL (80.0-98.0); Mean Platelet Volume 10.3 fL (9.4-12.3); Monocytes Absolute Auto 0.4 X10*3/uL (0.1-1.2); Monocytes Percent Auto 4.6 % (2-11); Neutrophils Absolute Auto 5.6 x10*3/uL (2.0-8.3); Neutrophils Percent Auto 69.9 % (45-73); Platelet Count 353 X10*3/uL (160-400); Red Blood Count 4.39 X10*6/uL (4.20-5.50); Red Cell Distribution Width 11.7 % (11.0-16.0)
[2023-03-03 20:17] LABS: Anion Gap 14 (12-20); Blood Urea Nitrogen 19 mg/dL (9-16); Calcium 10.4 mg/dL (8.4-10.2); Carbon Dioxide 28 mmol/L (22-29); Chloride 97 mmol/L (96-108); Creatinine Clr Calc Pharmacy 90.2; Estimated Glomerular Filt Rate > 60; Glucose Random 219 mg/dL (60-115); Potassium 3.6 mmol/L (3.3-5.1); Sodium 135 mmol/L (135-145)
== END 2023-03-04 00:10 | disposition left against medical advice (07) ==
PROVIDERS: Registered Nurse Emergency; Emergency Provider Emergency Medicine
DX: H53.2 Diplopia (principal); Z79.899 Other long term (current) drug therapy; Z87.891 Personal history of nicotine dependence
CPT/HCPCS: 36415; 70450; 80048; 85025; 99282; 99284

== ENCOUNTER 2023-03-14 15:31 | Outpatient (REF) | payer OTHER, SELFPAY ==
[2023-03-14 18:37] LABS: Erythrocyte Sedimentation Rate 44 MM/HR (0-20); T4 Thyroxine 6.9 ug/dL (4.5-12.0); Thyroid Stimulating Hormone 3.89 uIU/mL (0.32-4.0)
[2023-03-19 18:29] LABS: Acetylcholine Receptor Binding <0.30 nmol/L
[2023-03-25 19:38] LABS: Acetylcholine Recep Modulating 15
== END 2023-03-14 15:32 | disposition home or self-care (01) ==
LOC: HO.LAB 15:31
PROVIDERS: Visit Provider Psychiatry & Neurology Neurology
DX: H53.2 Diplopia (principal); G70.00 Myasthenia gravis without (acute) exacerbation
CPT/HCPCS: 36415; 82550; 83519; 84436; 84443; 85652

== ENCOUNTER 2024-06-18 16:26 | Emergency (ER) | payer MEDICARE, SELFPAY ==
--- NOTE | 2024-06-18 17:02 | ED_ITS ---
HPI - General Adult General Chief complaint: General Medical Stated complaint: High blood sugar Time Seen by Provider: 06/18/24 21:24 Source: patient Mode of arrival: ambulatory Limitations: no limitations History of Present Illness ED Provider: waleska MORRIS narrative: Patient is diabetic noncompliant with medication used to be on metformin not taking for last 2 nose come here as noticed a doctor's office but sugar of 508 no nausea no vomiting was feeling weak more confused and urinating a lot on arrival here blood sugar was 415 no nausea no vomiting no abdominal Related Data Previous Rx's ?Medication ?Instructions ?Recorded blood sugar diagnostic (FreeStyle #100 ea 04/10/21 Lite Strips) blood-glucose meter (FreeStyle #1 ea 04/10/21 Lite Meter kit) insulin glargine 100 unit/mL (3 15 unit (0.15 mL) subcut QPM #15 mL 06/18/24 mL) subcutaneous pen (Lantus Solostar U-100 Insulin) metformin 850 mg tablet 850 mg PO BID #180 tabs 06/18/24 Allergies Allergy/AdvReac Type Severity Reaction Status Date / Time No Known Allergies Allergy Verified 06/18/24 17:07 Review of Systems 2 Review of Systems: Yes all other systems are reviewed and are negative PMFSH Past Medical History Medical History Confusion Type 2 diabetes mellitus with hyperglycemia, without long-term current use of insulin Surgical History No pertinent past surgical history Family History Family History Mother Dementia Social History Social History Housing: Other Housing Other:: son and daughter in law Patient Tobacco Use Status: Former Tobacco user Years Smoked: 10 yrs Smoked in Last 30 Days: No e-Cigarette/Vaping Use: Never Used Second Hand Smoke Exposure: No Use of substances other than those prescribed or required for medical reasons: No Advance Directives: No Advance Directives Information Provided: No Do you have a plan to hurt others: No Plan service: No Current occupational status: employed Physical Exam ED Vital Signs: Vital Signs - 24 hr 06/18/24 17:03 06/18/24 21:23 06/18/24 23:55 Temperature 97.5 F 97.7 F 98.3 F Pulse Rate 76 77 82 Respiratory Rate 18 16 18 Blood Pressure 149/81 H 137/66 135/74 Pulse Oximetry 99 99 98 Oxygen Delivery Method Room Air Room Air Room Air 06/19/24 00:07 Temperature 98.3 F Pulse Rate 82 Respiratory Rate 18 Blood Pressure 135/74 Pulse Oximetry 98 Oxygen Delivery Method Room Air BMI result Body Mass Index 26.0 Appearance: Alert. Oriented X3. No acute distress. Eyes: PERRLA, No Nystagmus ENT: Pharynx normal. Oral Mucosa moist Neck: Normal inspection. Neck supple. CVS: Normal heart rate and rhythm. Pulses normal. Respiratory: No respiratory distress. Equal air entry bilateral, no wheezing/rales/rhonchi Abdomen: Soft and nontender. Bowel sounds are present, no mass palpable, no CVA tenderness Skin: Skin warm and dry. Normal skin color. Normal skin turgor. Extremities: No lower extremity edema. No calf tenderness Neuro: Oriented X 3. No motor deficit. No sensory deficit.No cerebellar signs , cranial nerves II-XII intact Course Course Course Narrative: This is a Rapid Medical Exam performed in triage by Shante Sue PA-C. Full HPI, ROS and PE to be performed by primary ED provider. 63-year-old female with past medical history of diabetes presenting to the ED sent in from urgent Care c/o medication noncompliance x months and elevated glucose at office, 508 today. denies decreased PO intake PE: ambulating w/steady gait Plan: Labs, UA Medications Administered Discontinued Medications Generic Name Dose Route Start Last Admin Trade Name Freq PRN Reason Stop Dose Admin Sodium Chloride 1,000 mls @ 999 mls/hr 06/18/24 21:32 06/18/24 21:36 Ns IV 06/18/24 22:32 999 mls/hr .Q1H1M ONE Administration Insulin Glargine 20 unit 06/18/24 21:32 06/18/24 21:40 Insulin Glargine,Hum.Rec.Anlog 100 Unit/Ml 10 Ml Vial SUBCUT 06/18/24 21:33 20 unit ONCE ONE Administration Insulin Human Lispro 16 unit 06/18/24 21:32 06/18/24 21:41 Insulin Lispro 100 Unit/Ml 3 Ml Vial SUBCUT 06/18/24 21:33 16 unit ONCE ONE Administration Medical Decision Making Medical Decision Making [facility] Narrative: Patient with uncontrolled diabetes secondary to noncompliance nonketotic no signs of infection blood sugar improved after giving Lantus and Humalog will prescribe Lantus insulin and metformin advised to follow with PCP Differential Diagnosis Differential Diagnoses: The differential diagnosis associated with the presentation includes Ketoacidosis/DKA/hyperglycemia/UTI Lab Data [facility] Lab Attestation statement: I reviewed the patient's lab results. 06/18/24 17:45 06/18/24 17:45 Labs: Lab Results 06/18/24 06/18/24 06/18/24 Range/Units 17:38 17:45 17:47 WBC 5.4 (4.8-10.8) X10*3/uL RBC 4.19 L (4.20-5.50) X10*6/uL Hgb 12.4 (12.0-16.0) g/dl Hct 36.3 L (37.0-47.0) % MCV 86.6 (80.0-98.0) fL MCH 29.6 (27.0-33.0) pg MCHC 34.2 (31.0-35.0) g/dl RDW 12.2 (11.0-16.0) % Plt Count 322 (160-400) X10*3/uL MPV 10.9 (9.4-12.3) fL Immature Gran % (Auto) 0.4 (0.0-0.4) % Neut % (Auto) 62.5 (45-73) % Lymph % (Auto) 27.6 (20-40) % [place] % (Auto) 5.6 (2-11) % Eos % (Auto) 2.6 (0-4) % Baso % (Auto) 1.3 (0-2) % Lymph # (Auto) 1.5 (1.2-4.9) X10*3/uL [place] # (Auto) 0.3 (0.1-1.2) X10*3/uL Eos # (Auto) 0.1 (0.0-0.4) X10*3/uL Baso # (Auto) 0.1 (0.0-0.2) X10*3/uL Abs Immat Gran (auto) 0.02 (0.00-0.03) X10*3/uL Absolute Neuts (auto) 3.4 (2.0-8.3) x10*3/uL Absolute Nucleated RBC 0.000 (0.0-0.012) X10*3/uL Nucleated RBC % (auto) 0.0 (0.0-0.2) /100WBC VBG pH 7.44 H (7.32-7.43) VBG pCO2 44 mmHg VBG pO2 38 mmHg VBG HCO3 30 H (22-26) mmol/L VBG O2 Saturation 54.0 % VBG Base Excess 5.6 mmol/L Sodium 133 L (135-145) mmol/L Potassium 4.0 (3.3-5.1) mmol/L Chloride 98 (96-108) mmol/L Carbon Dioxide 27 (22-29) mmol/L Anion Gap 12 (12-20) BUN 14 (9-16) mg/dL Creatinine 0.84 (0.5-1.4) mg/dL Estim Creat Clear Calc 61.1 Estimated GFR > 60 POC Glucose 384 H* (60-115) mg/dL Random Glucose 415 H* (60-115) mg/dL Calcium 9.8 (8.4-10.2) mg/dL Magnesium 1.6 (1.6-2.6) mg/dL Total Bilirubin 0.3 (0.0-1.0) mg/dL Direct Bilirubin 0.1 (0.0-0.5) mg/dL AST 14 (5-31) U/L ALT 12 (0-31) U/L Alkaline Phosphatase 142 H (39-117) U/L Total Protein 7.4 (6.5-8.0) g/dL Albumin 4.1 (3.5-5.0) g/dL Lipase 58 (8-78) U/L Beta-Hydroxybutyrate 0.14 (0.02-0.27) mmol/L Urine Color Urine Appearance Urine pH (5.0-9.0) Ur Specific [place] (1.005-1.025) Urine Protein (Neg-Trace) mg/dL Urine Glucose (UA) (Negative) mg/dL Urine Ketones (Negative) mg/dL Urine Blood (Negative) Urine Nitrite (Negative) Ur Leukocyte Esterase (Negative) Urine RBC (0-2) /HPF Urine WBC (0-5) /HPF Ur Squamous Epith Cells (0-2) /HPF Urine Bacteria (None Seen) Hyaline Casts (0-2) /LPF 06/18/24 06/18/24 06/18/24 Range/Units 21:22 22:25 22:56 WBC (4.8-10.8) X10*3/uL RBC (4.20-5.50) X10*6/uL Hgb (12.0-16.0) g/dl Hct (37.0-47.0) % MCV (80.0-98.0) fL MCH (27.0-33.0) pg MCHC (31.0-35.0) g/dl RDW (11.0-16.0) % Plt Count (160-400) X10*3/uL MPV (9.4-12.3) fL Immature Gran % (Auto) (0.0-0.4) % Neut % (Auto) (45-73) % Lymph % (Auto) (20-40) % [place] % (Auto) (2-11) % Eos % (Auto) (0-4) % Baso % (Auto) (0-2) % Lymph # (Auto) (1.2-4.9) X10*3/uL [place] # (Auto) (0.1-1.2) X10*3/uL Eos # (Auto) (0.0-0.4) X10*3/uL Baso # (Auto) (0.0-0.2) X10*3/uL Abs Immat Gran (auto) (0.00-0.03) X10*3/uL Absolute Neuts (auto) (2.0-8.3) x10*3/uL Absolute Nucleated RBC (0.0-0.012) X10*3/uL Nucleated RBC % (auto) (0.0-0.2) /100WBC VBG pH (7.32-7.43) VBG pCO2 mmHg VBG pO2 mmHg VBG HCO3 (22-26) mmol/L VBG O2 Saturation % VBG Base Excess mmol/L Sodium (135-145) mmol/L Potassium (3.3-5.1) mmol/L Chloride (96-108) mmol/L Carbon Dioxide (22-29) mmol/L Anion Gap (12-20) BUN (9-16) mg/dL Creatinine (0.5-1.4) mg/dL Estim Creat Clear Calc Estimated GFR POC Glucose 421 H* 416 H* (60-115) mg/dL Random Glucose (60-115) mg/dL Calcium (8.4-10.2) mg/dL Magnesium (1.6-2.6) mg/dL Total Bilirubin (0.0-1.0) mg/dL Direct Bilirubin (0.0-0.5) mg/dL AST (5-31) U/L ALT (0-31) U/L Alkaline Phosphatase (39-117) U/L Total Protein (6.5-8.0) g/dL Albumin (3.5-5.0) g/dL Lipase (8-78) U/L Beta-Hydroxybutyrate (0.02-0.27) mmol/L Urine Color Yellow Urine Appearance Clear Urine pH 6.5 (5.0-9.0) Ur Specific [place] >= 1.030 H (1.005-1.025) Urine Protein Negative (Neg-Trace) mg/dL Urine Glucose (UA) >=1000 H (Negative) mg/dL Urine Ketones Negative (Negative) mg/dL Urine Blood Negative (Negative) Urine Nitrite Negative (Negative) Ur Leukocyte Esterase Negative (Negative) Urine RBC 0-2 (0-2) /HPF Urine WBC 0-5 (0-5) /HPF Ur Squamous Epith Cells 0-2 (0-2) /HPF Urine Bacteria None Seen (None Seen) Hyaline Casts 0-2 (0-2) /LPF 06/18/24 Range/Units 23:29 WBC (4.8-10.8) X10*3/uL RBC (4.20-5.50) X10*6/uL Hgb (12.0-16.0) g/dl Hct (37.0-47.0) % MCV (80.0-98.0) fL MCH (27.0-33.0) pg MCHC (31.0-35.0) g/dl RDW (11.0-16.0) % Plt Count (160-400) X10*3/uL MPV (9.4-12.3) fL Immature Gran % (Auto) (0.0-0.4) % Neut % (Auto) (45-73) % Lymph % (Auto) (20-40) % [place] % (Auto) (2-11) % Eos % (Auto) (0-4) % Baso % (Auto) (0-2) % Lymph # (Auto) (1.2-4.9) X10*3/uL [place] # (Auto) (0.1-1.2) X10*3/uL Eos # (Auto) (0.0-0.4) X10*3/uL Baso # (Auto) (0.0-0.2) X10*3/uL Abs Immat Gran (auto) (0.00-0.03) X10*3/uL Absolute Neuts (auto) (2.0-8.3) x10*3/uL Absolute Nucleated RBC (0.0-0.012) X10*3/uL Nucleated RBC % (auto) (0.0-0.2) /100WBC VBG pH (7.32-7.43) VBG pCO2 mmHg VBG pO2 mmHg VBG HCO3 (22-26) mmol/L VBG O2 Saturation % VBG Base Excess mmol/L Sodium (135-145) mmol/L Potassium (3.3-5.1) mmol/L Chloride (96-108) mmol/L Carbon Dioxide (22-29) mmol/L Anion Gap (12-20) BUN (9-16) mg/dL Creatinine (0.5-1.4) mg/dL Estim Creat Clear Calc Estimated GFR POC Glucose 206 H (60-115) mg/dL Random Glucose (60-115) mg/dL Calcium (8.4-10.2) mg/dL Magnesium (1.6-2.6) mg/dL Total Bilirubin (0.0-1.0) mg/dL Direct Bilirubin (0.0-0.5) mg/dL AST (5-31) U/L ALT (0-31) U/L Alkaline Phosphatase (39-117) U/L Total Protein (6.5-8.0) g/dL Albumin (3.5-5.0) g/dL Lipase (8-78) U/L Beta-Hydroxybutyrate (0.02-0.27) mmol/L Urine Color Urine Appearance Urine pH (5.0-9.0) Ur Specific [place] (1.005-1.025) Urine Protein (Neg-Trace) mg/dL Urine Glucose (UA) (Negative) mg/dL Urine Ketones (Negative) mg/dL Urine Blood (Negative) Urine Nitrite (Negative) Ur Leukocyte Esterase (Negative) Urine RBC (0-2) /HPF Urine WBC (0-5) /HPF Ur Squamous Epith Cells (0-2) /HPF Urine Bacteria (None Seen) Hyaline Casts (0-2) /LPF Discharge Plan Discharge Clinical Impression: Type 2 diabetes mellitus with hyperglycemia, without long-term current use of insulin Patient Disposition: Home, Self-Care Instructions: Diabetic Hyperglycemia (ED) Additional Instructions: Drink plenty of fluids Take metformin daily as prescribed Lantus insulin 16 units every evening subcu as advised Check your blood sugar at least 2 or 3 times a day Prescriptions: New insulin glargine [Lantus Solostar U-100 Insulin] 100 unit/mL (3 mL) insulin pen 15 unit subcut QPM Qty: 15 1RF metformin 850 mg tablet 850 mg PO BID Qty: 180 0RF No Action (DME) FreeStyle Lite Strips Strip See Rx Instructions .Route Qty: 100 5RF Rx Instructions: check fasting blood sugar twice a day (DME) blood-glucose meter [FreeStyle Lite Meter] Kit See Rx Instructions .Route Qty: 1 0RF Rx Instructions: Check fasting blood sugar twice a day and keep a record of the readings Interventions: ED Discharge Assessment Last Done: 06/19/24 00:07 Discharge Date/Time: 06/19/24 00:24 Print Language: Georgian
[2024-06-18 17:03] VITALS: BP 149/81; PULSE 76; RESP 18; TEMP 36.4; O2SAT 99; BMI 26.0
[2024-06-18 17:46] LABS: MANUAL DIFF FLAG NO
[2024-06-18 17:47] LABS: Glucose, Whole Blood 384 mg/dL (60-115)
[2024-06-18 17:49] LABS: Basophils Absolute Auto 0.1 X10*3/uL (0.0-0.2); Basophils Percent Auto 1.3 % (0-2); Eosinophils Absolute Auto 0.1 X10*3/uL (0.0-0.4); Eosinophils Percent Auto 2.6 % (0-4); Hematocrit 36.3 % (37.0-47.0); Hemoglobin 12.4 g/dl (12.0-16.0); Imm Gran Abs Auto 0.02 X10*3/uL (0.00-0.03); Imm Gran Pct Auto 0.4 % (0.0-0.4); Lymphocytes Absolute Auto 1.5 X10*3/uL (1.2-4.9); Lymphocytes Percent Auto 27.6 % (20-40); Mean Corpuscular HGB Conc 34.2 g/dl (31.0-35.0); Mean Corpuscular Hemoglobin 29.6 pg (27.0-33.0); Mean Corpuscular Volume 86.6 fL (80.0-98.0); Mean Platelet Volume 10.9 fL (9.4-12.3); Monocytes Absolute Auto 0.3 X10*3/uL (0.1-1.2); Monocytes Percent Auto 5.6 % (2-11); Neutrophils Absolute Auto 3.4 x10*3/uL (2.0-8.3); Neutrophils Percent Auto 62.5 % (45-73); Platelet Count 322 X10*3/uL (160-400); Red Blood Count 4.19 X10*6/uL (4.20-5.50); Red Cell Distribution Width 12.2 % (11.0-16.0); White Blood Count 5.4 X10*3/uL (4.8-10.8)
[2024-06-18 17:50] LABS: VBG Base Excess 5.6 mmol/L; VBG HCO3 30 mmol/L (22-26); VBG pCO2 44 mmHg; VBG pH 7.44 (7.32-7.43); VBG pO2 38 mmHg
[2024-06-18 17:54] LABS: Venous Blood Gas Refer to POC result
[2024-06-18 18:09] LABS: Beta-Hydroxybutyrate 0.14 mmol/L (0.02-0.27)
[2024-06-18 18:22] LABS: Alanine Aminotransferase 12 U/L (0-31); Albumin Level 4.1 g/dL (3.5-5.0); Alkaline Phosphatase 142 U/L (39-117); Anion Gap 12 (12-20); Aspartate Amino Transferase 14 U/L (5-31); Bilirubin Direct 0.1 mg/dL (0.0-0.5); Bilirubin Total 0.3 mg/dL (0.0-1.0); Blood Urea Nitrogen 14 mg/dL (9-16); Calcium 9.8 mg/dL (8.4-10.2); Carbon Dioxide 27 mmol/L (22-29); Chloride 98 mmol/L (96-108); Creatinine Clr Calc Pharmacy 61.1; Estimated Glomerular Filt Rate > 60; Glucose Random 415 mg/dL (60-115); Lipase 58 U/L (8-78); Magnesium 1.6 mg/dL (1.6-2.6); Sodium 133 mmol/L (135-145); Total Protein 7.4 g/dL (6.5-8.0)
[2024-06-18 21:23] VITALS: BP 137/66; PULSE 77; RESP 16; TEMP 36.5; O2SAT 99
[2024-06-18 21:25] LABS: Glucose, Whole Blood 421 mg/dL (60-115)
[2024-06-18] MEDS: 0.9 % Sodium Chloride 1,000 ML 999 ML IV (21:36)
[2024-06-18] MEDS: Insulin Glargine,Hum.rec.anlog 100 UNIT/ML 10 ML VIAL 20 UNIT SUBCUT (21:40)
[2024-06-18] MEDS: Insulin Lispro 100 UNIT/ML 3 ML VIAL 16 UNIT SUBCUT (21:41)
[2024-06-18 22:29] LABS: Glucose, Whole Blood 416 mg/dL (60-115)
[2024-06-18 23:25] LABS: Appearance Urine Clear; Color Urine Yellow; Glucose Urine UA >=1000 mg/dL (Negative); Leukocyte Esterase Urine Negative (Negative); Nitrite Urine Negative (Negative); PH 6.5 (5.0-9.0); Specific Gravity - Urine >= 1.030 (1.005-1.025); UMIC TRIGGER UACC YES; Urine Blood Negative (Negative); Urine Ketones Negative (Negative); Urine Protein Negative (Neg-Trace)
[2024-06-18 23:30] LABS: Bacteria Urine None Seen (None Seen); Hyaline Casts Urine 0-2 /LPF (0-2); RBC Urine 0-2 /HPF (0-2); Squamous Epithelial Cell Urine 0-2 /HPF (0-2); WBC Urine 0-5 /HPF (0-5)
[2024-06-18 23:34] LABS: Glucose, Whole Blood 206 mg/dL (60-115)
[2024-06-18 23:55] VITALS: BP 135/74; PULSE 82; RESP 18; TEMP 36.8; O2SAT 98
[2024-06-19 00:07] VITALS: BP 135/74; PULSE 82; RESP 18; TEMP 36.8; O2SAT 98
== END 2024-06-19 00:24 | disposition home or self-care (01) ==
PROVIDERS: Physician Assistant; Emergency Provider Internal Medicine; PCP Internal Medicine
DX: E11.65 Type 2 diabetes mellitus with hyperglycemia (principal); Z91.148 Patient's other noncompliance with medication regimen for other reason
CPT/HCPCS: 36415; 80048; 80076; 81001; 82010; 82803; 82947; 83690; 83735; 85025; 99283; 99284